=== PATIENT | male | born 1960 | race Two or more races ===

== ENCOUNTER 2023-01-28 07:36 | Day surgery (SDC) | payer MEDICAID ==
[~2023-01-28] VITALS: Ht 177.8 cm; Wt 73.3 kg
[~2023-01-28 07:36] MED LIST: ATENOLOL; METROPOLOL; TRAMADOL; TRAZADONE; VICODIN
[2023-01-28] MEDS ORDERED: MIDAZOLAM HCL 5 MG/5 ML VIAL ONE (07:59)
[2023-01-28] MEDS ORDERED: fentaNYL CITRATE/PF 100 MCG/2 ML AMP ONE (07:59)
[2023-01-28 11:28] VITALS: O2SAT 98
[2023-01-28 16:11] VITALS: BP_SYST 120; PULSE 86; RESP 18
== END 2023-01-28 11:39 | disposition home or self-care (01) ==
LOC: SDS 07:36 → SMU 07:38 → SDS 11:39
PROVIDERS: ATTEND Internal Medicine
DX: Z12.11 Encounter for screening for malignant neoplasm of colon (principal); K57.30 Diverticulosis of large intestine without perforation or abscess without bleeding; K64.8 Other hemorrhoids; I10 Essential (primary) hypertension; Z98.890 Other specified postprocedural states; Z79.899 Other long term (current) drug therapy
CPT/HCPCS: 45378; 99152; G0378; J2250; J3010